=== PATIENT | female | born 1945 | race Caucasian/White ===

== ENCOUNTER 2016-06-20 09:14 | Emergency (ER) | payer MEDICARE, OTHER | END 2016-06-20 13:18 | disposition home or self-care (01) | LOC: ER 09:14 | DX: R07.2 Precordial pain (principal); R07.89 Other chest pain; R42 Dizziness and giddiness; R53.1 Weakness; G20 Parkinson's disease; G25.0 Essential tremor; Z79.899 Other long term (current) drug therapy; Z91.040 Latex allergy status; I10 Essential (primary) hypertension; F32.9 Major depressive disorder, single episode, unspecified; K21.9 Gastro-esophageal reflux disease without esophagitis | CPT/HCPCS: 36415; 70450; 71010; 80053; 82550; 83735; 84484; 85025; 85610; 85730; 93005; 96360 ==